=== PATIENT | male | born 1965 | race Caucasian/White ===

== ENCOUNTER 2016-11-18 19:22 | Emergency (ER) | payer BC ==
[2016-11-18] MEDS ORDERED: Tetan/Diph/Pertus SYR(Tdap)* 0.5 ML SYR(BOOSTRIX) use SYR IM ONE (19:25)
--- NOTE | 2016-11-18 19:27 | UC ---
HPI Wound/Suture Re-check - HPI Summary HPI Summary: 51 year old male presents with complains of stepping on a miriam nail. - History Of Current Complaint Stated Complaint: STEPPED ON MIRIAM NAIL Time Seen by Provider: 11/18/16 19:23 - Allergies/Home Medications Allergies/Adverse Reactions: Allergies Allergy/AdvReac Type Severity Reaction Status Date / Time No Known Allergies Allergy Verified 11/18/16 19:23 PMH/Surg Hx/FS Hx/Imm Hx - Surgical History Surgical History: Yes Surgery Procedure, Year, and Place: BILATERAL KNEE SURGERY - Family History Known Family History: Positive: Hypertension - Social History Alcohol Use: Occasionally Substance Use Type: None Smoking Status (MU): Never Smoked Tobacco Review of Systems Constitutional: Negative Skin: Other - puncture wound right foot Eyes: Negative ENT: Negative Respiratory: Negative Cardiovascular: Negative Gastrointestinal: Negative Genitourinary: Negative Motor: Negative Neurovascular: Negative Musculoskeletal: Negative Neurological: Negative Psychological: Negative All Other Systems Reviewed And Are Negative: Yes Physical Exam Triage Information Reviewed: Yes Eye Exam: Normal ENT Exam: Normal Dental Exam: Normal Neck exam: Normal Neck: Positive: 1 Respiratory Exam: Normal Cardiovascular Exam: Normal Abdominal Exam: Normal Musculoskeletal Exam: Normal Neurological Exam: Normal Psychological Exam: Normal Skin: Positive: Other - right foot puncture wound secondary a miriam nail Course/Dx - Differential Dx - Laceration/Wound Provider Diagnoses: puncture wound right foot (miriam nail) Discharge - Discharge Plan Condition: Stable Disposition: HOME Prescriptions: Amoxicillin/Clavulanate TAB* [Augmentin TAB 875*] 875 mg PO BID #20 tab Patient Education Materials: Soft Tissue Foreign Body (ED), Puncture Wound (ED) Referrals: Errol Clark NP [Primary Care Provider] - As Soon As Possible
[2016-11-18 19:28] VITALS: BP 157/94
[2016-11-18] MEDS ORDERED: Amoxicillin/Clavulanate TAB* 875 MG PO ONE (19:29)
--- NOTE | 2016-11-18 20:38 | RAD ---
Indication: Left foot injury, evaluate for foreign body. 3 views of left foot demonstrates no fracture. No evidence of radiopaque foreign body is identified. IMPRESSION: No fracture. No radiopaque foreign body is present.
== END 2016-11-18 21:00 | disposition home or self-care (01) ==
LOC: UCEAST 19:22
DX: S91.331A Puncture wound without foreign body, right foot, initial encounter (principal); W22.8XXA Striking against or struck by other objects, initial encounter; Y93.9 Activity, unspecified; Y92.9 Unspecified place or not applicable; Y99.9 Unspecified external cause status
CPT/HCPCS: 90471; 90715; 99212; A9270-GY; G0463

== ENCOUNTER → 2017-04-26 06:03 | Day surgery (SDC) | payer BC ==
[~2017-04-26 06:03] MED LIST: Acetaminophen TAB* 325 MG ONE; Acetaminophen TAB* 325 MG PO ONE; Buffered Lidocaine 0.9% SYRIN* 5 ML/SYR SYRINGE INTRADERM ONE; Buffered Lidocaine 0.9% SYRIN* 5 ML/SYR SYRINGE ONE; Bupivacaine 0.25% SDV* 30 ML ONE; Chloroprocaine 2%* 20 ML VIAL ONE; Dexamethasone IV* 4 MG/ML 1 ML (4 MG) IV SLOW PU ONE; Dexamethasone IV* 4 MG/ML 1 ML (4 MG) ONE; Famotidine IV* 10 MG/ML 2 ML (20 mg) IV ONE; Famotidine IV* 10 MG/ML 2 ML (20 mg) ONE; HYDROcodone/ACETAMIN 5-325 MG* 1 TAB ONE; HYDROcodone/ACETAMIN 5-325 MG* 1 TAB PO PRN; HYDROmorphone INJ* 1 MG/ML CARPUJECT SYRINGE IV PRN; Ibuprofen TAB* 600 MG PO PRN; Ketorolac INJ* 30 MG/ML 1 ML VIAL ONE; Lidocaine 2% PF * 5 ML VIAL ONE; Midazolam* 1 MG/ML 2 ML VIAL (2 MG) ONE; Nalbuphine* 20 MG/ML 1 ML VIAL IV PRN; Ondansetron INJ* 2 MG/ML VIAL IV PRN; Ondansetron INJ* 2 MG/ML VIAL ONE; PROCHLORPERAZINE INJ 5 MG/ML 2 ML VIAL IV PRN; Propofol* 10 MG/ML 20 ML BTL IV PUSH ONE; Propofol* 500 MG/50 ML BTL ONE; ceFAZolin 1 GM in Dextrose (*) 1 GM/50 ML BAG IVPB ONE; ceFAZolin 2 GM PREMIX (*) 2 GM/50 ML BAG IVPB ONE; fentaNYL* 50 MCG/ML 2 ML VIAL (100 MCG VIAL) IV PRN; fentaNYL* 50 MCG/ML 2 ML VIAL (100 MCG VIAL) ONE; oxyCODONE TAB* 5 MG TAB PO PRN; oxyCODONE/Acetamin 5/325 MG* TAB PO PRN
[2017-04-26 11:25] VITALS: BP 133/84
--- NOTE | 2017-04-27 | OP ---
OPERATIVE REPORT: DATE OF OPERATION: 04/26/17 DATE OF : 63 SURGEON: Arturo Sanchez MD EQUAL OPPORTUNITY REPRESENTATIVE: ANYA Juan ANESTHESIOLOGIST: Nadia Stanley MD ANESTHESIA: Spinal with MAC. PRE-OP DIAGNOSIS: Right knee, medial meniscus tear. POST-OP DIAGNOSIS: Right knee, medial meniscus tear. OPERATIVE PROCEDURE: Right knee arthroscopy with partial medial meniscectomy. IMPLANTS: None. TOURNIQUET TIME: 29 minutes at 250 mmHg with a thigh tourniquet. ESTIMATED BLOOD LOSS: Minimal. COMPLICATIONS: None. STATUS: Stable from the operating room to the recovery room and then home. INDICATIONS FOR PROCEDURE: Mickey is a very pleasant man who has been dealing with right knee pain for some time. He has failed nonoperative treatment and thus decided to move forward with a surgical treatment. We did discuss nonoperative and operative options at length in the office. Further, we discussed the nature and risks of surgery in careful detail in the office as well as in the preoperative holding area. Our discussions regarding the risks of surgery included, but were not limited to infection, wound problems, nerve injury, neuroma, RSD, persistent symptoms, persistent pain, worsening of arthritis, recurrent problems, and even the remote chance of catastrophic complication including the loss of limb. DESCRIPTION OF PROCEDURE: The patient was seen in the preoperative holding unit and informed written consent was obtained. The appropriate extremity was marked. The patient was then brought to the operating room and carefully positioned on the operating room table. The anesthesia was induced. All bony prominences were padded with great care. A thigh post was placed. A chlorhexidine based pre-scrub was performed followed by a standard ChloraPrep and drape in a sterile fashion. Surgical safety pause was then conducted in which we confirmed the appropriate patient, extremity, planned procedure, availability of equipment, indication, administration of antibiotics, and DVT prophylaxis in the form of a compression boot on the nonsurgical extremity. Prior to prepping and draping, a well padded thigh tourniquet had been placed. We began with an Esmarch exsanguination of the leg and inflated the tourniquet to 250 mmHg. I began by injecting 20 cc of sterile saline into the joint. I then placed a standard anterolateral portal and performed a diagnostic knee arthroscopy. There were some loose bodies noted in the lateral gutter as well as in the suprapatellar pouch. He had some mild fraying of the cartilage on the patella and some mild degenerative changes in the medial femoral condyle, but none that went down to the level of bone. An anteromedial portal was placed under direct visualization and the medial meniscus was examined. There was a large degenerative tear posteriorly and along the posterior horn. This was quite complex. Additionally, there was a radial tear at the root insertion that was not amenable to repair. I used a biter and a shaver to debride back the meniscus to a stable rim. Afterwards, this appeared to give a nice stable rim of meniscus and images were taken. All loose bodies were then removed from the joint and the joint was inspected again. The fluid was aspirated from the joint through the scope and the portals were then closed with 3-0 nylon sutures. I then injected some 0.25% plain Marcaine into the portal sites to help a postoperative pain. A sterile dressing was then placed followed by Cryo/ Cuff. All needle and sponge counts were correct at the end of the case. The patient was awakened from anesthesia and transferred to the recovery room in stable condition. There were no complications. ATTESTATION: I attest that I was present, scrubbed and performed the entire procedure myself. POSTOPERATIVE PLAN: Mickey can be weightbearing as tolerated with crutches for the first two weeks. We will have him follow up in two weeks for likely a suture removal, Steri-Strips application and progression of activities and physical therapy if he feels he could use some of this. [id number]/CPS #: [id number] RAFAEL
== END | disposition home or self-care (01) ==
LOC: OR 06:03
PROVIDERS: ATTEND Orthopaedic Surgery
DX: M23.203 Derangement of unspecified medial meniscus due to old tear or injury, right knee (principal); Z68.37 Body mass index [BMI] 37.0-37.9, adult; I10 Essential (primary) hypertension; G47.33 Obstructive sleep apnea (adult) (pediatric)
CPT/HCPCS: A9270-GY; J0690; J1100; J1885; J2250; J2400; J2405; J2704; J3010

== ENCOUNTER 2018-01-11 08:07 | Day surgery (SDC) | payer BC ==
--- NOTE | 2018-01-02 10:51 | HP ---
PREOPERATIVE HISTORY AND PHYSICAL EXAM: DATE OF SURGERY/ADMISSION: 01/11/18 DATE OF OFFICE VISIT/ENCOUNTER: 01/02/18 ATTENDING SURGEON: Aida Khan MD * (DICTATED BY ANYA RUELAS) PROCEDURE: Left wrist distal ulna hemiresection. CHIEF COMPLAINT: Left wrist pain. HISTORY OF PRESENT ILLNESS: This is a 52-year-old male who has been followed by Dr. Khan for complaints of pain in his left wrist and hand. This has been ongoing for a couple of years now. He has had an increase in pain, lately especially on the ulnar aspect of the wrist. He says when he puts his wrist in a certain position, he feels a snapping pain that is very painful, it sometimes radiates proximally and distally. He has tried to be careful with positioning, but he is continuing to have problems in his daily life and at work. 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 He has had tried bracing in the past, but it has been minimally helpful. X-rays show arthritic changes in various places throughout the wrist. Most notably, the pain at this time seems to be coming from the distal radioulnar joint. Dr. Khan has recommended surgical intervention at this time and the patient has consented to proceed with the left wrist distal ulna hemiresection. PAST MEDICAL HISTORY: 1. Hypertension. 2. Sleep apnea, the patient wears a CPAP. PAST SURGICAL HISTORY: 1. Right knee arthroscopy x2. 2. Left knee arthroscopy. CURRENT MEDICATIONS: 1. Amlodipine besylate 5 mg daily. 2. Triamterene-hydrochlorothiazide 37.5 - 25 mg daily. 3. Aspirin 325 mg daily. ALLERGIES: No known drug allergies. FAMILY MEDICAL HISTORY: Diabetes, heart disease, cancer, and COPD. SOCIAL HISTORY: The patient is employed as a business banking manager in [employer]. 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 He denies tobacco use. He denies recreational drug use. He drinks alcohol on very rare occasion. REVIEW OF SYSTEMS: Negative for general, cephalic, cardiovascular, respiratory , GI, , other musculoskeletal, integumentary, endocrine, neurologic, and hematologic symptoms. Infectious disease is negative for MRSA, hepatitis C, and HIV. No known anesthesia problems. PHYSICAL EXAMINATION GENERAL: Well-developed, well-nourished, 52-year-old male, in on acute distress. VITAL SIGNS: Height 6 feet 2 inches, weight 300 pounds, pulse rate 72, blood pressure 132/82. HEENT: Normocephalic, atraumatic. Pupils are equal, round, and reactive to light and accommodation. Extraocular movements are intact. NECK: Supple. No palpable lymph nodes. Throat is clear. PULMONARY: Lungs are clear to auscultation bilaterally. No wheezes, rales, or rhonchi. CARDIOVASCULAR: Regular rate and rhythm. S1, S2. No murmurs, rubs, or gallop. No edema. ABDOMEN: Positive bowel sounds, soft, nontender. MUSCULOSKELETAL: On exam of the left wrist, there is mild swelling mostly on the ulnar aspect when compared to the right wrist. On the left, he has decreased range of motion and flexion, extension, pronation, and supination as well as with radial and ulnar deviation, but the left is fairly minimal when compared to his right wrist. He can make a full fist. He has pain with palpation at the distal radial ulnar joint and supinating against resistance is very painful. Skin is intact. Neurovascular function is intact. NEUROLOGICAL: Alert and oriented x3. Cranial nerves II through XII are intact. Sensation is intact to light touch. IMAGING STUDIES: X-rays of the left wrist show radiocarpal arthritis, midcarpal arthritis, distal radial ulnar joint arthritis, and thumb CMC arthritis. MRI showed significant changes in the same areas as mentioned above. 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 PLAN: The patient is scheduled to undergo left wrist distal ulnar hemiresection with Dr. Khan on 01/11/18. He will return to the office 10 days postop for followup and suture removal. A prescription for [place] was e-scribed to the patient's pharmacy for postoperative pain management. ANYA RUELAS [id number]/[facility] #: [id number] MTDFran
[~2018-01-11 08:07] MED LIST changes: -Acetaminophen TAB* 325 MG ONE; -Acetaminophen TAB* 325 MG PO ONE; -Buffered Lidocaine 0.9% SYRIN* 5 ML/SYR SYRINGE ONE; -Bupivacaine 0.25% SDV* 30 ML ONE; -Chloroprocaine 2%* 20 ML VIAL ONE; -Dexamethasone IV* 4 MG/ML 1 ML (4 MG) IV SLOW PU ONE; -Dexamethasone IV* 4 MG/ML 1 ML (4 MG) ONE; -Famotidine IV* 10 MG/ML 2 ML (20 mg) ONE; -HYDROcodone/ACETAMIN 5-325 MG* 1 TAB ONE; -HYDROcodone/ACETAMIN 5-325 MG* 1 TAB PO PRN; -HYDROmorphone INJ* 1 MG/ML CARPUJECT SYRINGE IV PRN; -Ibuprofen TAB* 600 MG PO PRN; -Ketorolac INJ* 30 MG/ML 1 ML VIAL ONE; -Lidocaine 2% PF * 5 ML VIAL ONE; -Midazolam* 1 MG/ML 2 ML VIAL (2 MG) ONE; -Nalbuphine* 20 MG/ML 1 ML VIAL IV PRN; -Ondansetron INJ* 2 MG/ML VIAL IV PRN; -Ondansetron INJ* 2 MG/ML VIAL ONE; -PROCHLORPERAZINE INJ 5 MG/ML 2 ML VIAL IV PRN; -Propofol* 10 MG/ML 20 ML BTL IV PUSH ONE; -Propofol* 500 MG/50 ML BTL ONE; +ROPIVACAINE 5 MG/ML 30 ML BTL (0.5%) ONE; -ceFAZolin 1 GM in Dextrose (*) 1 GM/50 ML BAG IVPB ONE; -ceFAZolin 2 GM PREMIX (*) 2 GM/50 ML BAG IVPB ONE; -fentaNYL* 50 MCG/ML 2 ML VIAL (100 MCG VIAL) IV PRN; -fentaNYL* 50 MCG/ML 2 ML VIAL (100 MCG VIAL) ONE; -oxyCODONE TAB* 5 MG TAB PO PRN; -oxyCODONE/Acetamin 5/325 MG* TAB PO PRN
[2018-01-11] MEDS ORDERED: Famotidine IV* 10 MG/ML 2 ML (20 mg) ONE (08:14)
[2018-01-11] MEDS ORDERED: Midazolam* 1 MG/ML 5 ML VIAL (5 MG) ONE (08:50)
[2018-01-11] MEDS ORDERED: fentaNYL* 50 MCG/ML 2 ML VIAL (100 MCG VIAL) ONE (08:50)
[2018-01-11] MEDS ORDERED: Ketorolac INJ* 30 MG/ML 1 ML VIAL ONE (10:25)
[2018-01-11] MEDS ORDERED: DiMENhydriNATE IV* 50 MG/ML VIAL ONE (10:25)
[2018-01-11] MEDS ORDERED: Ondansetron INJ* 2 MG/ML VIAL ONE (10:25)
[2018-01-11] MEDS ORDERED: Lidocaine 2% PF * 5 ML VIAL ONE (10:25)
[2018-01-11] MEDS ORDERED: Dexamethasone IV* 4 MG/ML 1 ML (4 MG) ONE (10:25)
[2018-01-11] MEDS ORDERED: Propofol* 10 MG/ML 20 ML BTL IV PUSH ONE (10:25)
[2018-01-11] MEDS ORDERED: Acetaminophen TAB* 325 MG PO PRN (11:03)
[2018-01-11] MEDS ORDERED: oxyCODONE TAB* 5 MG TAB PO PRN (11:03)
[2018-01-11] MEDS ORDERED: Naloxone* 0.4 MG/ML 1 ML VIAL IV PRN (11:03)
[2018-01-11] MEDS ORDERED: HYDROmorphone INJ1* 1 MG/ML SYRINGE IV PRN (11:03)
[2018-01-11 11:47] VITALS: BP 131/71
[2018-01-11] MEDS ORDERED: HYDROcodone/ACETAMIN 5-325 MG* 1 TAB ONE (11:52)
--- NOTE | 2018-01-11 21:33 | OP ---
DATE OF OPERATION: 01/11/18 [facility] DATE OF : 63 SURGEON: Aida Khan MD LIFT MANAGER: ANYA Mosher ANESTHESIA: General. 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 OPERATIVE PROCEDURE: Left distal ulnar hemiresection. INDICATIONS FOR PROCEDURE: Mr. 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 He presents for left distal ulnar hemiresection. ESTIMATED BLOOD LOSS: Zero. TOURNIQUET TIME: About 30 minutes. DESCRIPTION OF PROCEDURE: The patient was brought to the operating room, was given a general anesthetic, and placed in the supine position on the operating table with a tourniquet around his left upper arm. The skin of his left upper extremity was prepped and draped in the usual sterile fashion. The hand and forearm were exsanguinated and the tourniquet elevated to 250 mmHg. A longitudinal incision was made over the distal radial ulnar joint and we dissected bluntly through the subcutaneous tissue. The dorsal sensory branch of the ulnar nerve was located and retracted by the medical surgical tech, Jami Park, whose assistance was essential for the safe completion of the case. The extensor retinaculum was incised between the ECU and the EDQ tendon and then the distal radial ulnar joint capsule was incised longitudinally. Hohmann retractors were placed around the ulnar head and the ulnar head was removed with a saw and rongeur. The DRUJ joint capsule was then reapproximated with 4- 0 nylon suture with a portion of the capsule interposed between the distal ulna and the radius. The extensor retinaculum was then repaired with 4-0 nylon suture and the skin edges were reapproximated with 4-0 nylon suture. The wound was dressed with Xeroform, 4x4, Webril, and a sugar-tong splint in supination. The patient tolerated the procedure well and was brought to the recovery room in good condition. [id number]/CPS #: [id number] MTDD
== END 2018-01-11 12:08 | disposition home or self-care (01) ==
LOC: OREAST 08:07
PROVIDERS: ATTEND Orthopaedic Surgery
DX: M19.032 Primary osteoarthritis, left wrist (principal); I10 Essential (primary) hypertension; G47.33 Obstructive sleep apnea (adult) (pediatric); E66.01 Morbid (severe) obesity due to excess calories; Z87.442 Personal history of urinary calculi
CPT/HCPCS: 88304; 88311; J1100; J1240; J1885; J2250; J2405; J2704; J2795; J3010

== ENCOUNTER 2020-06-04 01:57 | Inpatient (IN) ==
[2020-06-04 02:39] LABS: ABS Basophils 0.1 10^3/ul (0-0.2); ABS Eosinophils 0.5 10^3/ul (0-0.6); ABS Lymphocytes 3.2 10^3/ul (1.0-4.8); ABS Monocytes 0.9 10^3/ul (0-0.8); Eosinophil % 5.9 %; Hematocrit 44 % (42-52); Hemoglobin 15.3 g/dL (14.0-18.0); Lymphocyte % 42.1 %; Mean Corpuscular HGB Conc 35 g/dL (31-36); Mean Corpuscular Hemoglobin 31 pg (27-31); Mean Corpuscular Volume 91 fL (80-94); Mean Platelet Volume 8.1 fL (7.4-10.4); Nucleated Red Blood Cells % 0.1; Platelet Count 259 10^3/uL (150-450); Red Blood Count 4.87 10^6 /uL (4.18-5.48); Red Cell Distribution Width 14 % (10-15); White Blood Count 7.7 10^3/uL (3.5-10.8)
[2020-06-04 02:55] LABS: BUN/Creatinine Ratio 16.2 (8-20); Calcium 9.2 mg/dL (8.6-10.3); EGFR African American 83.2 (>60); EGFR Non-African American 68.8 (>60); Magnesium 2.2 mg/dL (1.9-2.7)
[2020-06-04 03:33] LABS: TSH Ultra Thyroid Stim Horm 2.98 mcIU/mL (0.34-5.60)
[2020-06-04 03:35] LABS: Free T4 0.89 ng/dL (0.61-1.12)
[2020-06-04 03:49] LABS: Potassium 2.9 mmol/L (3.5-5.0)
[2020-06-04 04:19] LABS: Troponin I 0.01 ng/mL (<0.03)
[2020-06-04] MEDS ORDERED: Potassium Chlor 20 meq TAB.ER PO ONE ×2 (04:21→08:13)
[2020-06-04] MEDS ORDERED: Ondansetron 4 mg VIAL 2 MG/ML 2 ml VIAL IV PRN (06:30)
[2020-06-04] MEDS ORDERED: Heparin 5000 UNITS/ML 1 mL VIAL SUBCUT SCH (09:00)
[2020-06-04 11:12] LABS: BUN/Creatinine Ratio 17.3 (8-20); Calcium 9.4 mg/dL (8.6-10.3); EGFR African American 96.1 (>60); EGFR Non-African American 79.4 (>60); Potassium 3.6 mmol/L (3.5-5.0)
[2020-06-04] MEDS ORDERED: Regadenoson 0.4 MG/5 ML SYRINGE ONE (13:31)
[2020-06-04] MEDS ORDERED: Aminophylline 25 MG/ML VIAL ONE (13:31)
[2020-06-04 19:45] VITALS: BP 151/83
== END 2020-06-04 19:30 | disposition home or self-care (01) | DRG 194 ==
LOC: ED 01:57 → MED 05:05
PROVIDERS: ADMIT Internal Medicine; ATTEND Internal Medicine